=== PATIENT | female | born 1985 | race Caucasian/White ===

== ENCOUNTER 2016-11-22 06:03 | Emergency (ER) | payer OTHER ==
[~2016-11-22] VITALS: Ht 170.2 cm; Wt 86.4 kg
[2016-11-22 06:15] VITALS: BP 123/85; PULSE 81; RESP 16; O2SAT 100
--- NOTE | 2016-11-22 06:23 | ED.REPORT ---
HPI-Dental/Mouth Prob Date of Service Nov 22, 2016 ED Provider: Nighat Kaur MD Healthy 31 year old female presents to the ER due to severe pain to a R upper tooth for 2 days. Pt has noticed worsening pain and swelling to her R cheek since onset of the pain. Pt has had pain to the tooth for many months, but just recently got worse. Associated symptoms include sore throat, adenopathy and difficulty eating. Pt denies fever, chills, arthralgias, difficulties swallowing and N/V/D. Pt has no dentist or dental insurance. Nursing Notes Stated Complaint: POSS ABSCESS TOOTH Chief Complaint: Dental Nursing Notes Reviewed: Yes Allergies: Coded Allergies: Penicillins (Verified Allergy, Severe, RASH, 11/22/16) Uncoded Allergies: Penicillin (Allergy, Severe, RASH, 06/30/04) Scheduled Clindamycin (Clindamycin) 300 Mg Capsule 300 MG PO QID Scheduled PRN Hydrocodone-Acetaminophen 5-325 mg (Hydrocodone-Acetaminophen 5-325 mg) 1 Each Tablet 1 TABLET PO Q6H PRN PRN For Pain General Time Seen by MD: 06:21 Chief Complaint Tooth pain Hx Obtained From: Patient Arrived By: Walk-in Onset Occurred: 2 days ago Symptom Duration: Since onset Location: : Tooth upper R molar Quality: Painful Severity: Current: Severe Associated with: Denies: Chills, Fever, Nausea, Shortness of breath, Vomiting, non bloody Pertinent Negative: Relieved by nothing Past Medical History Past Medical History No significant past medical history Past Surgical History None reported Smoking History Current Every Day Smoker Social History Alcohol Use: Denies alcohol use Drug Use: Denies drug use Ambulatory Status Independent Review of Systems Basic Review of Systems Eyes: Vision NL, No discharge Cardiovascular: No chest pain, No dyspnea on exertion, No orthopnea, No parox noct dyspnea, No palpitations Musculoskeletal: No extremity swelling, No extremity pain, Full range of motion , Joints NL Skin: No bruising, No rash, No itch Neurologic: NL mental status, No weakness, No numbness Psychiatric: Normal thought content Constitutional: Denies: Chills, Fever Ears / Nose / Throat: Reports: Toothache, Denies: Sore throat Respiratory: Denies: Non-productive cough, Shortness of breath GI: Denies: Abdominal pain, Diarrhea, Vomiting Complete sys rev & neg: except as marked. Physical Exam Initial Vital Signs Vital Signs (First) Date Time Temp Pulse Resp B/P Pulse Ox O2 Delivery O2 Flow Rate FiO2 11/22/16 06:15 36.1 81 16 123/85 100 Room Air Initial VS: Reviewed, Vital signs normal Head / Eyes: Atraumatic, Normocephalic, PERRL Respiratory: Breath sounds normal, Clear to auscultation, No respiratory distress Cardiovascular: Regular rate & rhythm, Heart sounds normal, Intact distal pulses Extremities: Vascular intact, Neuro intact Skin: Warm, Dry Neurologic: Alert, Oriented ENT: Mucous membranes moist Dental / Gums: Positive: Dentition poor, Tender to percussion (Tooth #3) Tooth #2 missing. Neck: Atraumatic Right submandicular swelling and tenderness General/Constitutional: Awake, Alert, Cooperative Interpretation & Diagnostics Lab Results Interpretation Result Diagram: 11/22/16 0700 11/22/16 0700 Test 11/22/16 07:00 White Blood Count 6.5th/mm3 (3.8-10.1) Red Blood Count 4.41mil/mm3 (3.90-5.20) Hemoglobin 13.3g/dL (12.0-15.6) Hematocrit 40.4% (35.0-46.0) Mean Corpuscular Volume 91.6fL (81-100) Mean Corpuscular Hemoglobin 30.2pg (27.0-35.0) Mean Corpuscular Hemoglobin Concent 32.9% (32.0-37.0) Red Cell Distribution Width 12.4% (12.3-15.4) Platelet Count 264bil/L (150-400) Neutrophils (%) (Auto) 44.2% (40-74) Lymphocytes (%) (Auto) 42.2% (14-46) Monocytes (%) (Auto) 9.2% (4-12) Eosinophils (%) (Auto) 3.4% (0-5) Basophils (%) (Auto) 0.8% (0-3) Sodium Level 140mEq/L (134-144) Potassium Level 4.0mEq/L (3.5-5.2) Chloride Level 103mEq/L (97-108) Carbon Dioxide Level 25mmol/L (18-29) Blood Urea Nitrogen 8mg/dL (6-20) Creatinine 0.52mg/dL (0.57-1.00) Estimat Glomerular Filtration Rate 198mL/min (>59) Glucose Level 100mg/dL (60-99) Calcium Level 9.0mg/dL (8.5-10.1) Re-Eval/Medical Decision Med Decision/Clinical Course The patient has poor dentition and looks like she is developing an infection. There is no obvious abscess. I believe the swelling on the right lower jaw is related to lymphadenopathy although I cannot isolate a node due to her pain. There is no sign of airway obstruction. She is given a dose of IV antibiotics and was discharged home. Re-Evaluation/Progress : Time of Eval: 08:23 Re-Evaluation/Progress Note: Updated pt of lab results. Discussed plan for discharge and follow up. All questions addressed. Counseled Regarding: Diagnosis, Lab results, Need for follow-up, When/why to return to ED Discharge & Departure Primary Impression: Pain, dental Additional Impression: Tooth infection Disposition: Home Discharge Condition All VS Reviewed: Yes Condition: Improved Additional Instructions: Make sure you take the antibiotic, clindamycin, every 6 hours until complete. Use the pain medication, [place], sparingly. You need to see a dentist as soon as possible. Seek care for increased swelling, pain, redness or if not improving in the next few days. Return for any new or concerning symptoms. Referrals: You Malcolm MD (PCP) Scribe Attestation Portions of this note were transcribed by Franci Malcolm. I, (Dr. Nighat Kaur) personally performed the history, physical exam and medical decision-making; I reviewed and confirmed the accuracy of the information in the transcribed note. Signed by: Franci Malcolm. Ivette, 11/22/16, 4143 copies to: You Malcolm MD, Jena M MD Nov 22, 2016 06:23 Franci Malcolm Nov 22, 2016 06:36
[2016-11-22 06:48] VITALS: BP 124/80; PULSE 84; RESP 16; O2SAT 96
[2016-11-22] MEDS ORDERED: HYDROmorphone 0.5 mg/0.5 mL iSecure Syringe IVPUSH ONE (06:50)
[2016-11-22] MEDS ORDERED: 0.9% Sodium Chloride 1,000 ML IV ONE (06:50)
[2016-11-22] MEDS ORDERED: Clindamycin Inj 900 MG in IV Premix 1 EACH IV ONE (06:50)
[2016-11-22] MEDS ORDERED: Ondansetron 2 mg/mL 2 mL Inj IVPUSH PRN (06:50)
[2016-11-22] MEDS ORDERED: Dexamethasone 10 mg/mL Inj IVPUSH ONE (06:50)
[2016-11-22 07:17] LABS: BASOPHILS % (AUTO) 0.8 % (0-3); EOSINOPHILS % (AUTO) 3.4 % (0-5); MONOCYTES % (AUTO) 9.2 % (4-12); Mean Corpuscular Hemoglobin 30.2 pg (27.0-35.0); Mean Corpuscular Volume 91.6 fL (81-100); NEUTROPHILS % (AUTO) 44.2 % (40-74); Platelet Count 264 bil/L (150-400)
[2016-11-22] MEDS ORDERED: HYDR-4003 PO (08:23)
[2016-11-22] MEDS ORDERED: CLIN-78 PO (08:23)
[2016-11-22 08:37] VITALS: BP 129/79; PULSE 65; RESP 12; O2SAT 98
[2016-11-22 08:38] VITALS: BP 129/79; PULSE 65; RESP 12; O2SAT 98
== END 2016-11-22 08:38 | disposition home or self-care (01) ==
LOC: SED 06:03
DX: K08.89 Other specified disorders of teeth and supporting structures (principal); K04.7 Periapical abscess without sinus; J02.9 Acute pharyngitis, unspecified; R59.9 Enlarged lymph nodes, unspecified; F17.200 Nicotine dependence, unspecified, uncomplicated; Z88.0 Allergy status to penicillin
CPT/HCPCS: 36415; 80048; 85025; 96365; 96375; 99284; J1100; J1170; J2405; J7030